=== PATIENT | male | born 1950 | race Caucasian/White ===

== ENCOUNTER 2019-08-30 13:52 | Outpatient (CLI) | payer MEDICARE, MEDICAID, SELFPAY ==
--- NOTE | ~2019-08-30 | XR_ITS ---
EXAMINATION: XR chest 2V EXAM DATE: 08/30/2019 14:21 INDICATION: COPD. Airspace disease. Shortness of breath and cough. TECHNIQUE: Frontal and lateral projections of the chest obtained and reviewed. Comparison is made to prior examination from 07/11/2019. FINDINGS: Sternotomy wires are present without findings to suggest sternal dehiscence. There is mode rate amount of right greater than left airspace disease, could be multifocal pneumonia and/or edema. Underlying cancer not excludable. There are small to moderate bilateral pleural effusions. Heart is u pper limits of normal in size, and improved compared to previous examination. No pneumothorax. There are mild bony degenerative changes. Right humeral enchondroma. IMPRESSION: 1. Moderate amount of bibasilar edema and/or pneumonia. Underlying cancer not excludable. 2. Small to moderate pleural effusions. Reviewed, dictated and finalized at location B. L SPRAY OPERATOR
== END 2019-08-30 13:53 | disposition home or self-care (01) ==
LOC: ANHIMG 13:58
PROVIDERS: PCP Internal Medicine; Visit Provider Internal Medicine
DX: I50.42 Chronic combined systolic (congestive) and diastolic (congestive) heart failure (principal); J90 Pleural effusion, not elsewhere classified
CPT/HCPCS: 71046

== ENCOUNTER 2019-09-12 11:47 | Outpatient (CLI) | payer MEDICARE, MEDICAID, SELFPAY ==
[2019-09-12 12:45] LABS: Basophils Percent Auto 0.7 % (0.2-1.2); Eosinophils Absolute Auto 0.3 K/mm3 (0-0.3); Eosinophils Percent Auto 4.8 % (0-4.4); Hematocrit 30.1 % (42.0-52.0); Hemoglobin 9.5 g/dL (14.0-18.0); Immature Granulocyte Absolute 0.03 K/mm3 (0.00-0.031); Immature Granulocyte Percent A 0.5 % (0-0.5); Lymphocytes Absolute Auto 1.03 K/mm3 (0.9-3.2); Lymphocytes Percent Auto 17.2 % (18.3-44.2); Mean Corpuscular HGB Conc 31.6 g/dl (32-36); Mean Corpuscular Hemoglobin 27.9 pg (26-34); Mean Corpuscular Volume 88.3 fl (80-100); Mean Platelet Volume 10.3 fl (7.4-10.4); Monocytes Absolute Auto 0.7 K/mm3 (0.1-0.6); Monocytes Percent Auto 11.5 % (2.6-8.5); Neutrophils Absolute Auto 3.9 K/mm3 (1.3-6.7); Neutrophils Percent Auto 65.3 % (45.5-73.1); Platelet Count Result 245 k/mm3 (150-375); Red Blood Count 3.41 M/mm3 (4.6-6.20); Red Cell Distribution Width 15.1 % (11.5-14.5)
[2019-09-12 12:52] LABS: Alanine Aminotransferase 8 U/L (4-50); Albumin Level 3.5 g/dL (3.5-5.1); Alkaline Phosphatase 59 U/L (38-126); Aspartate Amino Transferase 14 U/L (17-59); Bilirubin,Total 0.4 mg/dL (0.2-1.3); Blood Urea Nitrogen 44 mg/dL (9-20); Calcium 9.1 mg/dL (8.4-10.2); Carbon Dioxide 27 mmol/L (22-30); Chloride 94 mmol/L (98-107); Estimated Glomerular Filt Rate 17; Glucose 184 mg/dL (75-110); Potassium 4.7 mmol/L (3.4-5.0); Sodium 136 mmol/L (137-145)
[2019-09-12 12:55] LABS: Hemoglobin A1C 5.8 % (<5.7)
== END 2019-09-12 11:48 | disposition home or self-care (01) ==
PROVIDERS: PCP Internal Medicine; Visit Provider Internal Medicine
DX: N18.4 Chronic kidney disease, stage 4 (severe) (principal); D63.1 Anemia in chronic kidney disease; E11.22 Type 2 diabetes mellitus with diabetic chronic kidney disease; I12.9 Hypertensive chronic kidney disease with stage 1 through stage 4 chronic kidney disease, or unspecified chronic kidney disease
CPT/HCPCS: 36415; 80053; 83036; 85025

== ENCOUNTER 2019-10-14 09:18 | Observation (INO) | payer MEDICARE, MEDICAID, SELFPAY ==
[2019-10-14] VITALS (17 sets, daily range): BP systolic 134–178; BP diastolic 65–80; PULSE 64–88; RESP 16–20; TEMP 36.6–36.9; O2SAT 94–99; BMI 23.6; BMI 29.8
--- NOTE | ~2019-10-14 | XR_ITS ---
EXAMINATION: XR chest 2V DATE: 10/14/2019 10:46 INDICATION: Shortness of breath TECHNIQUE: AP and lateral views of the chest are obtained. COMPARISON: 08/30/2019 FINDINGS: There are patchy interstitial and airspace opacities with a mid and lower lung zone predomi nance. Small pleural effusions are present. There is no pneumothorax. Cardiomegaly is noted. Median s ternotomy wires and mediastinal surgical clips are seen, likely from prior coronary artery bypass gra fting. Again noted is a chronic sclerotic lesion of the right humeral diaphysis, likely representing an enchondroma. IMPRESSION: 1. Stable cardiomegaly. 2. Opacities of the mid and lower lung zones, consistent with pulmonary edema and/or pneumonia and/or atelectasis. 2. Small pleural effusions. Reviewed, dictated and finalized at location A. IMPRESSION: 1. Stable cardiomegaly. 2. Opacities of the mid and lower lung zones, consistent with pulmonary edema a nd/or pneumonia and/or atelectasis. 2. Small pleural effusions.
--- NOTE | 2019-10-14 09:51 | ECG_ITS ---
Measurements Intervals [place] Rate: 68 P: 44 SD: 110 QRS: 24 QRSD: 114 T: 185 QT: 450 QTc: 479 Interpretive Statements SINUS RHYTHM WITH SHORT SD INTERVAL POSSIBLE LEFT ATRIAL ENLARGEMENT INCOMPLETE LEFT BUNDLE BRANCH BLOCK LEFT VENTRICULAR HYPERTROPHY AND ST-T CHANGE ST-T WAVE ABNORMALITY IN LATERAL LEADS- CONSIDER ISCHEMIA BASELINE ARTIFACT- I, III, AVL ABNORMAL ECG Electronically Signed On 10-14-2019 10:19:27 CDT by Danny Michelle D.O.
--- NOTE | 2019-10-14 09:56 | ED.WEAKNESS ---
HPI - Weakness General Chief complaint: Weakness <Sarah Jessica PA-C - Last Filed: 10/14/19 15:15> Stated complaint: WEAKNESS <KENDRICK Salvador Last Filed: 10/14/19 15:15> Time Seen by Provider: 10/14/19 09:24 <KENDRICK Salvador Last Filed: 10/14/19 15:15> Source: patient <KENDRICK Salvador Last Filed: 10/14/19 15:15> Mode of arrival: wheelchair <KENDRICK Salvador Last Filed: 10/14/19 15:15> Limitations: no limitations <KENDRICK Salvador Last Filed: 10/14/19 15:15> History of Present Illness HPI Narrative: This is a 69 year old male that presents to the ER for shortness of breath since this morning. Reports he started feeling short of breath in the middle of the night. Reports he could not sleep due to shortness of breath. Reports some fatigue. Reports a chronic productive cough. Reports he was seen by his PCP and supervisor litharge 2 days ago and told he was doing well. Denies fever, chest pain, abdominal pain, vomiting, dysuria or hematuria. <KENDRICK Salvador Last Filed: 10/14/19 15:15> Related Data Home medications: Home Medications Medication Instructions Recorded Confirmed aspirin 81 mg tablet,delayed 81 mg PO DAILY 05/29/19 10/14/19 release ezetimibe 10 mg tablet 10 mg PO QPM 05/29/19 10/14/19 isosorbide mononitrate 30 mg 30 mg PO DAILY 05/29/19 10/14/19 tablet,extended release 24 hr omega-3 fatty acids 1,000 mg 1,000 mg PO DAILY 05/29/19 10/14/19 capsule famotidine [Pepcid] 20 mg PO DAILY 06/04/19 10/14/19 cholecalciferol (vitamin D3) 25 1,000 unit PO DAILY 07/10/19 10/14/19 mcg (1,000 unit) capsule hydralazine 100 mg tablet 100 mg PO TID tablet 09/12/19 10/14/19 furosemide 40 mg tablet 40 mg PO BID 10/11/19 10/14/19 insulin glargine [Lantus Solostar 18 unit SUB-Q HS 10/14/19 10/14/19 U-100 Insulin] insulin glargine [Lantus Solostar 26 unit SUBCUT QAM 10/14/19 10/14/19 U-100 Insulin] <Sarah Jessica PA-C - Last Filed: 10/14/19 15:15> Allergies/Adverse reactions: Allergies Allergy/AdvReac Type Severity Reaction Status Date / Time No Known Allergies Allergy Verified 10/14/19 09:31 <Sarah Jessica PA-C - Last Filed: 10/14/19 15:15> Review of Systems Review of Systems: Narrative: CONSTITUTIONAL: Denies fever, chills ENT: Reports rhinorrhea, congestion. Denies sore throat, or otalgia. CARDIOVASCULAR: Reports edema. Denies chest pain RESPIRATORY: Reports cough and dyspnea. GASTROINTESTINAL: Denies abdominal pain, nausea, vomiting GENITOURINARY: Denies dysuria or hematuria. <Sarah Jessica PA-C - Last Filed: 10/14/19 15:15> All systems reviewed & are unremarkable except as noted in HPI and below <Sarah Jessica PA-C - Last Filed: 10/14/19 15:15> [facility] Social History Social History: Social History Social History: the patient has smoked between a half a pack of cigarettes per day up to a pack and half cigarettes per day since he was young. He reports that he [place] and never intends to quit smoking. He has not drank alcohol in 48 years. He has been to his of 50 years and she is at bedside. The patient quit driving in the last several months. He realizes that it is time for him to give up driving. He denies any illicit substance use. 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 The patient wants to get better so that he has some more time with his grandchildren. Code status is DNR per patient request. His is his healthcare power of welder manufacture. primary care physician is Dr. Carl Melgar Smoking packs per day: 0.5 Smoking cigarettes per day: 10.0 Smoking status: Current every day smoker Tobacco type: cigarettes Second hand tobacco smoke exposure: Yes
[2019-10-14 10:09] LABS: Basophils Percent Auto 0.5 % (0.2-1.2); Eosinophils Absolute Auto 0.4 K/mm3 (0-0.3); Eosinophils Percent Auto 5.4 % (0-4.4); Hematocrit 31.8 % (42.0-52.0); Hemoglobin 9.9 g/dL (14.0-18.0); Immature Granulocyte Absolute 0.03 K/mm3 (0.00-0.031); Immature Granulocyte Percent A 0.4 % (0-0.5); Lymphocytes Absolute Auto 0.93 K/mm3 (0.9-3.2); Lymphocytes Percent Auto 12.6 % (18.3-44.2); Mean Corpuscular HGB Conc 31.1 g/dl (32-36); Mean Corpuscular Volume 90.1 fl (80-100); Mean Platelet Volume 10.8 fl (7.4-10.4); Monocytes Absolute Auto 0.7 K/mm3 (0.1-0.6); Monocytes Percent Auto 9.4 % (2.6-8.5); Neutrophils Absolute Auto 5.3 K/mm3 (1.3-6.7); Neutrophils Percent Auto 71.7 % (45.5-73.1); Platelet Count Result 259 k/mm3 (150-375); Red Blood Count 3.53 M/mm3 (4.6-6.20); Red Cell Distribution Width 15.5 % (11.5-14.5); White Blood Count 7.4 K/mm3 (4.5-10.0)
[2019-10-14] MEDS: IPRATROPIUM BR 0.02% INH SOLN 0.5 MG/2.5 ML VIAL INHALATION ×2 (10:12→21:03)
[2019-10-14 10:13] LABS: Lactic Acid Reflex 0.6 mmol/L (0.7-2.1)
[2019-10-14 10:19] LABS: Blood Urea Nitrogen 48 mg/dL (9-20); CRP 1.8 mg/dL (<1.0); Calcium 8.7 mg/dL (8.4-10.2); Carbon Dioxide 25 mmol/L (22-30); Chloride 99 mmol/L (98-107); Estimated Glomerular Filt Rate 17; Glucose 84 mg/dL (75-110); Sodium 136 mmol/L (137-145)
[2019-10-14 10:22] LABS: NT Pro B Type Natriuretic Pept > 35000 PG/ML (5-100)
[2019-10-14 10:23] LABS: Alveolar/Arterial O2 Gradient 39.6 mmHg; Base Excess ABG -2.6 mEq/l (+/-2.0); Carboxyhemoglobin 4.8 % THb (0-2.0); Device ROOM AIR; Fractional Inspired Oxygen 21 %; HCO3 ABG 21.6 mEq/l (22.0-26.0); Methemoglobin ABG 0.3 %THb (0-1.5); Modified Allen's Test Pass; Oxygen Saturation ABG 93.9 % (95.0-100.0); Oxyhemoglobin 87.6 % THb (90.0-100.0); PCO2 ABG 35.1 mmHg (35.0-45.0); PO2 ABG 68.1 mmHg (80.0-100.0); PO2 FiO2 Ratio Arterial Blood 3.24 %; Reduced Hemoglobin 7.3 %THb (0-5.0); Site Drawn LEFT RADIAL; Total Hemoglobin 10.5 g/dL (12.0-18.0); pH ABG 7.407 (7.350-7.450)
--- NOTE | 2019-10-14 11:13 | PC.NURSE ---
Patient's at the nurses station inquiring about drink. PA aware and okayed diet soda. Patient states, this is why I left last time, they won't give you anything to eat. Encouraged to give urine sample; states he won't be able to. Straight cath urine ordered.
[2019-10-14 11:35] LABS: Add Urine Microscopic? YES; Appearance Urine Clear (Clear); Bilirubin Urine Negative (Negative); Blood Urine Negative (Negative); Color Urine Yellow (Yellow); Glucose Urine UA Negative (Negative); Ketones Urine Negative (Negative); Leukocyte Esterase Ur Negative LEU/UL (Negative); Mucus Urine Rare /lpf; Nitrate Urine Negative (Negative); Protein Urine 3+ mg/dL (Negative); Specific Grav Ur 1.014 (1.001-1.035); Squamous Epithelial Cell Urine Rare /hpf (Few); Urobilinogen Urine Negative mg/dL (<2.0); WBC Urine 0-3 /hpf
[2019-10-14] MEDS: FUROSEMIDE INJ 40 MG/4 ML VIAL IV PUSH (12:29)
--- NOTE | 2019-10-14 14:11 | PC.NURSE ---
Dietary called and tray requested.
--- NOTE | 2019-10-14 15:59 | ADMGEN ---
This patient, Jose Stanley, was admitted to 3 [facility] Surg Room 315-02. Patient/family oriented to hospital policies and general routines including ID bracelet, bed and alarms, visiting hours, pain management, procedures, bathroom and other care routines, personal items, smoking policy, room service/diet, and visiting hours. Valuables list has been completed. Information on how to activate the Rapid Response Team has been discussed. Patient/Family are encouraged to report perceived risks to care and to ask questions if they do not understand what they are told or what they should do.
--- NOTE | 2019-10-14 16:51 | PC.NURSE ---
Informed pt he would be on a bed alarm due to his respiratory illness and weakness. He sighed and mumbled some curse words but did not refuse the bed alarm. Pt states he does not want to be left not a human so he would like to be a DNR. Also, pt only wants to be here one day. Pt has had sores that developed into staph infections on his feet last summer. They are being treated with mupirocin BID
[2019-10-14 17:11] LABS: Glucose Point of Care 179 (65-105)
--- NOTE | 2019-10-14 18:23 | PM.IMHP ---
H&P: HPI History of Present Illness Chief complaint: CHF exacerbation/CAP/CKD Narrative: Jose Stanley is a 69 year old male who has a history of chronic interstitial lung disease seen by his timber hewer on the of this month and he also saw his primary care doctor and stated that everything checked out fine. The patient has been using his medications as prescribed. The patient came to the emergency room today because he was short of breath since this morning. The patient started feeling short of breath in the middle night. It was not able to sleep due to the shortness of breath. He could not lie flat. He has been fatigued today. He has a chronic productive cough. Patient does continue to smoke and stated that he would not stop smoking. Was read as stable cardiomegaly. Opacities in the mid and lower lung zones, consistent with pulmonary edema and/or pneumonia and/or atelectasis. Small pleural effusions. The patient tells me that he is coughing up a clear to thick white sputum. Any fever or chills. He has a chronic cough. The patient initially did not want to stay but his convinced him. However the patient is stating that he would like to go home tomorrow. I explained the could not promise that he could go home tomorrow but he may need to be here longer. Pulmonology has been consulted and had recommended antibiotics. The patient was started on azithromycin and ceftriaxone. He was also given IV Lasix and nebulizer treatments. White count is normal. Date of service 10/14/2019 Review of Systems Review of Systems: Narrative: Patient is short of breath with exertion and lying flat. He does not wear oxygen at home. All systems reviewed & are unremarkable except as noted in HPI and below Constitutional: Constitutional: Reports as per HPI and Reports no additional constitutional complaints Eyes: Eyes: Reports as per HPI and Reports no additional eye complaints ENT: Reports system reviewed and no additional complaints, except as documented and Reports Normal hearing present Cardiovascular: Cardiovascular: Reports no additional cardiovascular complaints Respiratory: Respiratory: Reports no additional respiratory complaints and Reports no additional respiratory complaints Gastrointestinal: Gastrointestinal: Reports as per HPI and Reports no additional gastrointestinal complaints Musculoskeletal: Musculoskeletal: Reports no additional musculoskeletal complaints Integumentary/Breasts: Skin/Breast: Reports system reviewed and no additional complaints, except as docu and Reports as per HPI Neurologic: Reports system reviewed and no additional complaints, except as documented, Reports as per HPI and Reports Normal hearing present Psychiatric: Psychiatric: Reports no additional psychiatric complaints and Reports as per HPI Endocrine: Endocrine: Reports no additional endocrine complaints Hematologic/Lymphatic: Hematologic/Lymphatic: Reports no additional hematologic/lymphatic complaints Allergic/Immunologic: Allergic/Immunologic: Reports no additional allergic/immunologic complaints [facility] Past Medical History Medical History Anemia in chronic kidney disease CAD (coronary artery disease) CHF (congestive heart failure) Chronic kidney disease (CKD) stage G4/A1, severely decreased glomerular filtration rate (GFR) between 15-29 mL/min/1.73 square meter and albuminuria creatinine ratio less than 30 mg/g Combined systolic and diastolic cardiac dysfunction echocardiogram January 2019 demonstrating EF of 35-40% with grade 2 diastolic dysfunction Diabetes mellitus diagnosed January 2019, insulin-dependent HLD (hyperlipidemia) HTN (hypertension) Myocardial infarct Peripheral artery disease PNA (pneumonia) Tobacco abuse Surgical History Surgical History (Updated 10/14/19 @ 18:38 by Isabel Marcum NP) H/O arthroscopic knee surgery Left knee to clean out infection History of surg
[2019-10-14] MEDS: methylPREDNISolone SOD SUCC 125 MG VIAL IV PUSH (18:42)
[2019-10-14] MEDS: NICOTINE (*PBKC) 21 MG PATCH 1 PATCH TRANSDERM (18:43)
[2019-10-14] MEDS: GUAIFENESIN/DEXTROMETHORPHAN 10 ML UDC PO (18:47)
[2019-10-14 19:08] LABS: Hemoglobin A1C 5.6 % (<5.7)
[2019-10-14] MEDS: METOPROLOL TARTRATE 50 MG TAB 100 MG PO (20:41)
[2019-10-14] MEDS: TRAZODONE HCL 50 MG TABLET 100 MG PO (20:43)
[2019-10-14] MEDS: MUPIROCIN 2% OINT 22 GM TUBE 1 APPLIC TOPICAL (20:44)
[2019-10-14] MEDS: EZETIMIBE 10 MG TABLET PO (20:44)
[2019-10-14] MEDS: INSULIN GLARGINE (*BKC) 100 UNITS/ML 18 UNITS SUB-Q (20:55)
[2019-10-14] MEDS: ALBUTEROL SULFATE NEB 2.5 MG/0.5 ML INH INHALATION (21:03)
[2019-10-14 21:14] LABS: Glucose Point of Care 105 (65-105)
[2019-10-14] MEDS: methylPREDNISolone SOD SUCC 125 MG VIAL 60 MG IV PUSH (21:29)
[2019-10-15] VITALS (10 sets, daily range): BP systolic 166–184; BP diastolic 68–70; PULSE 70–83; RESP 16–20; TEMP 36.6–36.7; O2SAT 94–99
--- NOTE | 2019-10-15 00:29 | PC.NURSE ---
Patient refuses bed alarm. Patient agrees to call for assistance when getting out of bed.
[2019-10-15] MEDS: IPRATROPIUM BR 0.02% INH SOLN 0.5 MG/2.5 ML VIAL INHALATION ×2 (02:41→09:24)
[2019-10-15] MEDS: ALBUTEROL SULFATE NEB 2.5 MG/0.5 ML INH INHALATION ×2 (02:41→09:25)
[2019-10-15 06:13] LABS: Basophils Percent Auto 0.2 % (0.2-1.2); Hematocrit 31.8 % (42.0-52.0); Hemoglobin 10.2 g/dL (14.0-18.0); Immature Granulocyte Absolute 0.04 K/mm3 (0.00-0.031); Immature Granulocyte Percent A 0.7 % (0-0.5); Lymphocytes Absolute Auto 0.46 K/mm3 (0.9-3.2); Lymphocytes Percent Auto 7.7 % (18.3-44.2); Mean Corpuscular HGB Conc 32.1 g/dl (32-36); Mean Corpuscular Hemoglobin 28.1 pg (26-34); Mean Corpuscular Volume 87.6 fl (80-100); Mean Platelet Volume 10.4 fl (7.4-10.4); Monocytes Absolute Auto 0.1 K/mm3 (0.1-0.6); Neutrophils Absolute Auto 5.4 K/mm3 (1.3-6.7); Neutrophils Percent Auto 90.4 % (45.5-73.1); Platelet Count Result 217 k/mm3 (150-375); Red Blood Count 3.63 M/mm3 (4.6-6.20); Red Cell Distribution Width 14.9 % (11.5-14.5)
[2019-10-15] MEDS: methylPREDNISolone SOD SUCC 125 MG VIAL 60 MG IV PUSH (06:14)
[2019-10-15 06:28] LABS: Alanine Aminotransferase 11 U/L (4-50); Albumin Level 3.7 g/dL (3.5-5.1); Alkaline Phosphatase 56 U/L (38-126); Aspartate Amino Transferase 15 U/L (17-59); Bilirubin,Total 0.5 mg/dL (0.2-1.3); Blood Urea Nitrogen 47 mg/dL (9-20); Calcium 8.8 mg/dL (8.4-10.2); Carbon Dioxide 22 mmol/L (22-30); Chloride 101 mmol/L (98-107); Estimated CRCL calculation 16 ml/min; Estimated Glomerular Filt Rate 15; Glucose 188 mg/dL (75-110); Magnesium 2.2 mg/dL (1.6-2.3); Sodium 133 mmol/L (137-145)
[2019-10-15 08:44] LABS: Glucose Point of Care 193 (65-105)
[2019-10-15] MEDS: INSULIN GLARGINE (*BKC) 100 UNITS/ML 26 UNITS SUB-Q (09:30)
[2019-10-15] MEDS: MUPIROCIN 2% OINT 22 GM TUBE 1 APPLIC TOPICAL (09:39)
[2019-10-15] MEDS: METOPROLOL TARTRATE 50 MG TAB 100 MG PO (09:39)
[2019-10-15] MEDS: CHOLECALCIFEROL 1,000 UNIT TABLET 1000 UNITS PO (09:43)
[2019-10-15] MEDS: FAMOTIDINE 20 MG TABLET PO (09:43)
[2019-10-15] MEDS: ASPIRIN 81 MG ENTERIC TABLET PO (09:43)
[2019-10-15] MEDS: hydrALAZINE HCL 50 MG TABLET 100 MG PO ×2 (09:43→13:31)
[2019-10-15] MEDS: FUROSEMIDE INJ 40 MG/4 ML VIAL IV PUSH (09:43)
[2019-10-15] MEDS: ISOSORBIDE MONONITRATE 30 MG TAB.ER.24H PO (09:44)
[2019-10-15] MEDS: NICOTINE (*PBKC) 21 MG PATCH 1 PATCH TRANSDERM (09:44)
[2019-10-15] MEDS: OMEGA 3 POLYUNSAT FATTY ACIDS 1 GM CAP PO (09:45)
--- NOTE | 2019-10-15 11:21 | PM.IMPN ---
Progress Note: A&P Assessment and Plan (1) Combined systolic and diastolic cardiac dysfunction: Code(s): I51.89 - Other ill-defined heart diseases Status: Acute Assessment and Plan: Chest xray as noted below. Clinically more consistent with CHF exacerbation Has received IV Lasix here. Plan to return to oral Lasix at discharge. Continue metoprolol. Will discharge today as stable. Can follow up with PCP, pulmonology and nephrology as outpatient. (2) Pneumonia: Qualifiers: Laterality: right Lung location: upper lobe of lung Pneumonia type: due to unspecified organism Qualified Code(s): J18.1 - Lobar pneumonia, unspecified organism Code(s): J18.9 - Pneumonia, unspecified organism Status: Ruled-out Assessment and Plan: Chest xray on admission with opacities of the mid and lower lung zones, consistent with pulmonary edema and/or pneumonia and/or atelectasis. Pulmonology consulted from ER with recommendation for antibiotics with IV azithryomycin and ceftriaxone started. Clinically less likely pneumonia with WBC normal and no fever. Patient on room air. Feels much better and wants to go home. Notified pulmonology symptoms more consistent with CHF. Will not send home on oral antibiotics. (3) Chronic kidney disease (CKD) stage G4/A1, severely decreased glomerular filtration rate (GFR) between 15-29 mL/min/1.73 square meter and albuminuria creatinine ratio less than 30 mg/g: Code(s): N18.4 - Chronic kidney disease, stage 4 (severe) Status: Acute Assessment and Plan: Nephrology has been consulted. I did discuss with Dr. Monahan as patient eager to go home. Creatinine slightlly higher at 4.00 today but this is consistent with IV Lasix being given. Can follow as outpatient. (4) ILD (interstitial lung disease): Code(s): J84.9 - Interstitial pulmonary disease, unspecified Status: Acute Assessment and Plan: Chronic. Sees pulmonology regularly. Continue nebulizer treatments while here. On room air. Also receiving IV steroids. Await further recommendations from pulmonology. (5) HTN (hypertension): Qualifiers: Hypertension type: essential hypertension Qualified Code(s): I10 - Essential (primary) hypertension Code(s): I10 - Essential (primary) hypertension Status: Acute Assessment and Plan: Blood pressure reviewed on 10/15/2019 with elevated readings but patient is worried about getting home. Will continue metoprolol, hydralazine, Lasix, and isosorbide. Can adjust treatment if needed. (6) Diabetes mellitus: Qualifiers: Chronic kidney disease stage: stage 4 (severe) Diabetes mellitus complication detail: with chronic kidney disease Diabetes mellitus complication status: with kidney complications Diabetes mellitus long chain quiller tender insulin use: with long chain quiller tender use Diabetes mellitus type: type 2 Qualified Code(s): E11.22 - Type 2 diabetes mellitus with diabetic chronic kidney disease; N18.4 - Chronic kidney disease, stage 4 (severe); Z79.4 - termination clerk (current) use of insulin Code(s): E11.9 - Type 2 diabetes mellitus without complications Status: Acute Assessment and Plan: HgbA1C 5.6. Continue home Lantus. Sliding scale insulin available as needed. (7) Anemia in chronic kidney disease: Qualifiers: Chronic kidney disease stage: stage 4 (severe) Qualified Code(s): N18.4 - Chronic kidney disease, stage 4 (severe); D63.1 - Anemia in chronic kidney disease Code(s): N18.9 - Chronic kidney disease, unspecified; D63.1 - Anemia in chronic kidney disease Status: Acute Assessment and Plan: H/H stable. (8) HLD (hyperlipidemia): Qualifiers: Hyperlipidemia type: unspecified Qualified Code(s): E78.5 - Hyperlipidemia, unspecified Code(s): E78.5 - Hyperlipidemia, unspecified Status: Acute Assessment and Plan: Continue Zetia and fish oil. (9) DVT pr
[2019-10-15 13:23] LABS: Glucose Point of Care 202 (65-105)
[2019-10-15] MEDS: INSULIN ASPART (*BKC) 100 UNITS/ML SUB-Q (13:29)
--- NOTE | 2019-10-15 16:31 | PM.DS ---
DS: Diagnosis Admitting Diagnosis Admitting Diagnosis: Lobar pneumonia, unspecified organism Discharge Diagnosis (1) Combined systolic and diastolic cardiac dysfunction: Code(s): I51.89 - Other ill-defined heart diseases Status: Acute Assessment and Plan: Acute on chronic combined systolic and diastolic CHF. (2) Pneumonia: Qualifiers: Laterality: right Lung location: upper lobe of lung Pneumonia type: due to unspecified organism Qualified Code(s): J18.1 - Lobar pneumonia, unspecified organism Code(s): J18.9 - Pneumonia, unspecified organism Status: Ruled-out Assessment and Plan: RULED OUT (3) Chronic kidney disease (CKD) stage G4/A1, severely decreased glomerular filtration rate (GFR) between 15-29 mL/min/1.73 square meter and albuminuria creatinine ratio less than 30 mg/g: Code(s): N18.4 - Chronic kidney disease, stage 4 (severe) Status: Acute (4) ILD (interstitial lung disease): Code(s): J84.9 - Interstitial pulmonary disease, unspecified Status: Acute (5) HTN (hypertension): Qualifiers: Hypertension type: essential hypertension Qualified Code(s): I10 - Essential (primary) hypertension Code(s): I10 - Essential (primary) hypertension Status: Acute (6) Diabetes mellitus: Qualifiers: Chronic kidney disease stage: stage 4 (severe) Diabetes mellitus complication detail: with chronic kidney disease Diabetes mellitus complication status: with kidney complications Diabetes mellitus alf insulin use: with economics analyst use Diabetes mellitus type: type 2 Qualified Code(s): E11.22 - Type 2 diabetes mellitus with diabetic chronic kidney disease; N18.4 - Chronic kidney disease, stage 4 (severe); Z79.4 - legal collector (current) use of insulin Code(s): E11.9 - Type 2 diabetes mellitus without complications Status: Acute (7) Anemia in chronic kidney disease: Qualifiers: Chronic kidney disease stage: stage 4 (severe) Qualified Code(s): N18.4 - Chronic kidney disease, stage 4 (severe); D63.1 - Anemia in chronic kidney disease Code(s): N18.9 - Chronic kidney disease, unspecified; D63.1 - Anemia in chronic kidney disease Status: Acute (8) HLD (hyperlipidemia): Qualifiers: Hyperlipidemia type: unspecified Qualified Code(s): E78.5 - Hyperlipidemia, unspecified Code(s): E78.5 - Hyperlipidemia, unspecified Status: Acute DS: Summary Hospital Course Reason for hospitalization: Shortness of breath. Hospital Course: Date of Service of Discharge: October 15, 2019. History of Present Illness: Patient 69-year-old gentleman with known chronic interstitial lung disease, congestive heart failure, chronic kidney disease, diabetes and hypertension presented to the emergency room with feeling of shortness of breath in the middle of the night. Patient was unable to sleep due to the shortness of breath and could not lay flat. Patient reports being fatigued. Chronic productive cough. He does continue to smoke. He was recently seen by both his primary physician and lopper with no issues noted. No fever or chills. No chest pain. In the emergency room, imaging was consistent with pulmonary edema and/or pneumonia and/or atelectasis. Pulmonology and nephrology were consulted from the emergency room. Pulmonology requested IV antibiotics. Patient was placed in observation for further evaluation and treatment. Course in Hospital: Patient was placed on the medical floor with telemetry. He was started on IV Lasix with symptoms. We were consistent with congestive heart failure with no elevated white blood cell count no fever. Patient rapidly improved with the IV Lasix. By the following day, patient was feeling better than he had in years. He was very eager to leave in order to see his family. He initially had been started on nebulizer treatments as well as continued on other home med
== END 2019-10-15 14:55 | disposition home or self-care (01) ==
LOC: ANHED 14:16 → ANH3MEDSUR 15:15 → ANH3MED 10-16 15:41 → ANH3MEDSUR 10-16 15:41
PROVIDERS: Nurse Practitioner; Physician Assistant; Admitting Provider Internal Medicine; Emergency Provider General Practice; PCP Internal Medicine; Visit Provider Hospitalist
DX: I13.0 Hypertensive heart and chronic kidney disease with heart failure and stage 1 through stage 4 chronic kidney disease, or unspecified chronic kidney disease (principal); I50.43 Acute on chronic combined systolic (congestive) and diastolic (congestive) heart failure; N18.4 Chronic kidney disease, stage 4 (severe); E11.22 Type 2 diabetes mellitus with diabetic chronic kidney disease; D63.1 Anemia in chronic kidney disease; J84.9 Interstitial pulmonary disease, unspecified; F17.210 Nicotine dependence, cigarettes, uncomplicated; E78.5 Hyperlipidemia, unspecified; E11.51 Type 2 diabetes mellitus with diabetic peripheral angiopathy without gangrene; I25.10 Atherosclerotic heart disease of native coronary artery without angina pectoris; Z79.4 Long term (current) use of insulin; Z79.82 Long term (current) use of aspirin; Z79.899 Other long term (current) drug therapy; Z95.1 Presence of aortocoronary bypass graft
CPT/HCPCS: 36415; 36600; 51701; 71046; 80048; 80053; 81001; 82375; 82805; 83036; 83050; 83605; 83735; 83880; 85025; 86140; 87804; 93005; 94640; 96365; 96374; 96375; 96376; 99285; A9270; G0378; G0379; J0456; J0696; J1815; J1940; J2930

== ENCOUNTER 2020-02-03 18:11 | Observation (INO) | payer MEDICARE, MEDICAID, SELFPAY ==
[2020-02-03] VITALS (26 sets, daily range): BP systolic 160–187; BP diastolic 63–80; PULSE 62–71; RESP 16–27; TEMP 35.8–36.7; O2SAT 92–98; BMI 23.2
--- NOTE | ~2020-02-03 | US_ITS ---
EXAMINATION: US venous doppler [facility] DATE: 02/04/2020 13:40 INDICATION: Lower limb swelling TECHNIQUE: Grayscale ultrasound images without and with compression and Doppler ultrasound images of the bilateral lower extremity veins were obtained. COMPARISON: 04/17/2019 FINDINGS: The visualized portions of right common femoral vein, profunda (deep) femoral vein, femoral vein, pop liteal vein, posterior tibial veins, peroneal veins, gastrocnemius vein and greater saphenous vein ou tflow are patent. The visualized portions of left common femoral vein, profunda femoral vein, femoral vein, popliteal v ein, posterior tibial veins, peroneal veins, gastrocnemius vein and greater saphenous vein outflow ar e patent. IMPRESSION: 1. No deep venous thrombosis in either lower limb. Reviewed, dictated and finalized at location A.
--- NOTE | ~2020-02-03 | XR_ITS ---
XR chest 1V portable DATE: 02/03/2020 19:14 INDICATION: Chest pain TECHNIQUE: Portable upright AP chest on 02/03/2020 at 1912 hours COMPARISON: 10/14/2019 portable AP chest FINDINGS: Status post sternotomy. There is mild patchy infiltrate and/atelectasis in the mid and to a greater extent lower lung zones. There are small bilateral pleural effusions. There is mild pulmonar y vascular congestion and redistribution and mild prominence of minor fissure. Aortic arch calcification. Diffuse osteopenia. IMPRESSION: Mild congestive heart failure, with bilateral mid and lower lung infiltrates which may be due to pulmonary edema or pneumonia Reviewed, dictated and finalized at location A. IMPRESSION: Mild congestive heart failure, with bilateral mid and lower lung in filtrates which may be due to pulmonary edema or pneumonia
--- NOTE | ~2020-02-03 | XR_ITS ---
EXAMINATION: XR foot RT 2V DATE: 02/03/2020 22:01 INDICATION: Right foot infection TECHNIQUE: Dorsoplantar and lateral views of the right foot were obtained. COMPARISON: None. FINDINGS: Bone alignment is normal. Partial amputation of the medial and distal aspect of the first distal phal anx with linear osteotomy margin and reduced overlying soft tissue coverage. There is suggestion of s ome osteolysis along the proximal and distal aspects of the osteotomy plane raising suspicion for rec urrent osteomyelitis. No other lesions suspicious for osteomyelitis. No fracture. Mild osteoarthritis at the metatarsophalangeal and a few interphalangeal joints. IMPRESSION: 1. Partial amputation of the right first distal phalanx with suggestion of some osteolysis suspicious for osteomyelitis along the osteotomy margin. Reviewed, dictated and finalized at location A.
--- NOTE | 2020-02-03 18:43 | ECG_ITS ---
Measurements Intervals [place] Rate: 64 P: 26 [place]: 114 QRS: 5 QRSD: 113 T: 180 QT: 450 QTc: 465 Interpretive Statements SINUS RHYTHM WIH SHORT CA INTERVAL INCOMPLETE LEFT BUNDLE BRANCH BLOCK DELAYED PRECORDIAL R/S TRANSITION ST-T WAVE ABNORMALITY IN LATERAL LEADS- CONSIDER ISCHEMIA ABNORMAL ECG Electronically Signed On 02-04-2020 6:49:53 CDT by Danny Michelle D.O.
[2020-02-03 18:52] LABS: Basophils Percent Auto 0.5 % (0.2-1.2); Eosinophils Absolute Auto 0.2 K/mm3 (0-0.3); Eosinophils Percent Auto 3.1 % (0-4.4); Hematocrit 31.3 % (42.0-52.0); Hemoglobin 9.7 g/dL (14.0-18.0); Immature Granulocyte Absolute 0.04 K/mm3 (0.00-0.031); Immature Granulocyte Percent A 0.5 % (0-0.5); Lymphocytes Percent Auto 12.2 % (18.3-44.2); Mean Corpuscular Hemoglobin 27.5 pg (26-34); Mean Corpuscular Volume 88.7 fl (80-100); Mean Platelet Volume 10.1 fl (7.4-10.4); Monocytes Absolute Auto 0.8 K/mm3 (0.1-0.6); Monocytes Percent Auto 10.8 % (2.6-8.5); Neutrophils Absolute Auto 5.4 K/mm3 (1.3-6.7); Neutrophils Percent Auto 72.9 % (45.5-73.1); Platelet Count Result 267 k/mm3 (150-375); Red Blood Count 3.53 M/mm3 (4.6-6.20); Red Cell Distribution Width 15.2 % (11.5-14.5); White Blood Count 7.4 K/mm3 (4.5-10.0)
--- NOTE | 2020-02-03 19:02 | ED.GENADULT ---
HPI - General Adult General Chief complaint: Chest Pain Stated complaint: chest pain Time Seen by Provider: 02/03/20 18:45 Source: patient and family History of Present Illness HPI narrative: Patient 69 years old white male brought to the emergency room by his complaining of feeling sick for the last 5 to 6 months. Unable to see his physician because of the COVID-19. Patient does not have any new symptoms. He came to the emergency room because his forced him to come. Today his noticed that patient grabbing his left arm because of discomfort lasted for a few seconds then went away. Currently patient denying any fever, chills, nausea, vomiting, chest pain, back pain, shortness of breath or exposure to anybody was COVID-19. Patient reports sOme lesion at the right big toe for months which is getting better. Patient also been coughing for months before the COVID-19. Is not worse than before. Patient's brought him to us today because he told her that he is feeling that he is going to and intermittently grabbing of his left upper extremity Patient main complaint right now is being here he would like to be at home. Patient reports not taking his medication as scheduled. He take IT when he remembers. Related Data Home Medications Medication Instructions Recorded Confirmed aspirin 81 mg tablet,delayed 81 mg PO DAILY 05/29/19 12/13/19 release ezetimibe 10 mg tablet 10 mg PO QPM 05/29/19 12/13/19 omega-3 fatty acids 1,000 mg 1,000 mg PO DAILY 05/29/19 12/13/19 capsule famotidine [Pepcid] 20 mg PO DAILY 06/04/19 12/13/19 cholecalciferol (vitamin D3) 25 1,000 unit PO DAILY 07/10/19 12/13/19 mcg (1,000 unit) capsule furosemide 40 mg tablet 40 mg PO BID 10/11/19 12/13/19 Lantus Solostar U-100 Insulin 18 unit SUB-Q HS 10/14/19 12/13/19 Allergies Allergy/AdvReac Type Severity Reaction Status Date / Time No Known Allergies Allergy Verified 02/03/20 18:27 Review of Systems Review of Systems: Narrative: CONSTITUTIONAL: Denies fever, chills, or sweats. EYES: Denies visual changes, redness, or discharge. ENT: Denies rhinorrhea, congestion, sore throat, or otalgia. CARDIOVASCULAR: Denies chest pain, palpitations, or edema. RESPIRATORY: Denies cough or dyspnea. GASTROINTESTINAL: Denies abdominal pain, nausea, vomiting, or diarrhea. GENITOURINARY: Denies dysuria or hematuria. SKIN: Denies rash or itching. MUSCULOSKELETAL: Denies back pain, joint pain, or myalgia. NEUROLOGIC: Denies headache, numbness, or weakness. PSYCHIATRIC: Denies anxiety or depression. [facility] Past Medical History Medical History Anemia in chronic kidney disease CAD (coronary artery disease) CHF (congestive heart failure) Chronic kidney disease (CKD) stage G4/A1, severely decreased glomerular filtration rate (GFR) between 15-29 mL/min/1.73 square meter and albuminuria creatinine ratio less than 30 mg/g Combined systolic and diastolic cardiac dysfunction echocardiogram January 2019 demonstrating EF of 35-40% with grade 2 diastolic dysfunction Diabetes mellitus diagnosed January 2019, insulin-dependent HLD (hyperlipidemia) HTN (hypertension) Myocardial infarct Peripheral artery disease PNA (pneumonia) Screening for colon cancer Tobacco abuse Surgical History Surgical History H/O arthroscopic knee surgery Left knee to clean out infection History of surgical removal of skin lesion Hx of CABG three vessel CABG 2004 Family History Family History Mother Family history of malignant neoplasm Acute myocardial infarction Cerebrovascular accident Congestive heart failure Hypertension Father Acute myocardial infarction Congestive heart failure Hypertension Social History Social History Social History: the patient has smoked between
[2020-02-03 19:03] LABS: INR 1.1; Prothrombin Time 14.2 Seconds (11.1-14.7)
[2020-02-03 19:04] LABS: Blood Urea Nitrogen 39 mg/dL (9-20); Calcium 8.6 mg/dL (8.4-10.2); Carbon Dioxide 26 mmol/L (22-30); Chloride 99 mmol/L (98-107); Estimated CRCL calculation 19 ml/min; Estimated Glomerular Filt Rate 16; Glucose 152 mg/dL (75-110); Partial Thromboplastin Time 37.3 SECONDS (22.3-36.8); Potassium 3.7 mmol/L (3.4-5.0); Sodium 133 mmol/L (137-145)
--- NOTE | 2020-02-03 19:16 | PC.NURSE ---
Report received from KAM Oconnor. Assumed care of patient at this time.
[2020-02-03 19:18] LABS: Troponin I 0.035 ng/mL (0.000-0.034)
[2020-02-03 20:02] LABS: NT Pro B Type Natriuretic Pept > 35000 PG/ML (5-100)
--- NOTE | 2020-02-03 20:46 | PC.NURSE ---
Patient was going to leave AMA, but now patient and family member stating they want to speak with the doctor because he wants to stay and be admitted. ED physician notified.
[2020-02-03] MEDS: NITROGLYCERIN OINTMENT 1 INCH DOSE TRANSDERM ×2 (21:25→23:57)
[2020-02-03] MEDS: FUROSEMIDE INJ 40 MG/4 ML VIAL 60 MG IV PUSH (21:26)
--- NOTE | 2020-02-03 21:49 | PM.IMHP ---
H&P: HPI History of Present Illness Chief complaint: CHF, noncompliance with medication Narrative: Jose Stanley is a 69 year old male who was admitted here last October 14, 2019 for shortness of breath. The patient sees a physical design engineer and has a history of chronic interstitial lung disease and saw her October 10. Since the COVID outbreak the patient has not been able to follow-up with his primary care doctor or his specialist. His appointment with his mechanical technical service specialist Dr. Gaona had been canceled. The patient has congestive heart failure with last known ejection fraction of 35-40% with grade 2 diastolic dysfunction this echo was noted on January 2019. Patient also stated that he had a wound to his right great toe that he had doctor to himself. He had cut out the infection and allowed to his pet dog to cleanse his wound. Patient stated that is healing well and has not had any fevers. The patient stated he has been feeling bad for 4-5 months. However he was too afraid to come to the emergency room because of the COVID outbreak. Patient feels tired all the time and is weak. He does have home health that comes to see him on a regular basis. His blood sugars have been up and down his with his lowest 1 being 28 and as high as 1 being up to 300. His insulin recently was adjusted. The monitors his blood sugars carefully every day. Patient tells me that he does take his medications and that he gets himself an extra dose of Lasix when he feels that he needs it he has increased swelling or shortness of breath. He also was unable to see his event staff Dr. Smith due to the COVID outbreak. However his creatinine is 3. 70 his last creatinine was noted to be 4.0. His GFR is 16 today. Blood sugar 152. BNP is greater than 35,000. Patient is not complaining of any chest pain at this time. The patient was hallucinating earlier according to his . He denies any fever or chills or nausea vomiting. The patient felt like he was going to earlier it was intermittent only grabbing his left upper extremity. The patient agreed to stay overnight but desperately wants to go back home. 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 Review of Systems Review of Systems: All systems reviewed & are unremarkable except as noted in HPI and below Constitutional: Constitutional: Reports as per HPI and Reports no additional constitutional complaints Eyes: Eyes: Reports as per HPI and Reports no additional eye complaints ENT: Reports system reviewed and no additional complaints, except as documented and Reports Normal hearing present Cardiovascular: Cardiovascular: Reports no additional cardiovascular complaints Respiratory: Respiratory: Reports no additional respiratory complaints and Reports no additional respiratory complaints Gastrointestinal: Gastrointestinal: Reports as per HPI and Reports no additional gastrointestinal complaints Musculoskeletal: Musculoskeletal: Reports no additional musculoskeletal complaints Integumentary/Breasts: Skin/Breast: Reports system reviewed and no additional complaints, except as docu and Reports as per HPI Neurologic: Reports system reviewed and no additional complaints, except as documented, Reports as per HPI and Reports Normal hearing present Psychiatric: Psychiatric: Reports no additional psychiatric complaints and Reports as per HPI Endocrine: Endocrine: Reports no additional endocrine complaints Hematologic/Lymphatic: Hematologic/Lymphatic: Reports no additional hematologic/lymphatic complaints Allergic/Immunologic: Allergic/Immunologic: Reports no additional allergic/immunologic complaints [facility] Past Medical History Medical History (Updated 02/03/20 @ 22:10 by Isabel Marcum NP) Anemia in chronic kidney disease CAD (coronary artery disease) CHF (congestive heart failure) Chronic kidney disease (CKD) stage G4/A1, severely decreased glomerular filtration rate (GFR) between 15-2
--- NOTE | 2020-02-03 22:15 | ADMGEN ---
This patient, Jose Stanley, was admitted to IMU Room 212-01. Patient/family oriented to hospital policies and general routines including ID bracelet, bed and alarms, visiting hours, pain management, procedures, bathroom and other care routines, personal items, smoking policy, room service/diet, and visiting hours. Valuables list has been completed. Information on how to activate the Rapid Response Team has been discussed. Patient/Family are encouraged to report perceived risks to care and to ask questions if they do not understand what they are told or what they should do.
[2020-02-03 22:37] LABS: Troponin I 0.037 ng/mL (0.000-0.034)
[2020-02-03] MEDS: NICOTINE (*PBKC) 21 MG PATCH 1 PATCH TRANSDERM (23:56)
[2020-02-04] VITALS (14 sets, daily range): BP systolic 165–169; BP diastolic 66–71; PULSE 59–78; RESP 16–20; TEMP 35.7–36.1; O2SAT 95–98
[2020-02-04 00:58] LABS: Glucose Point of Care 86 (65-105)
[2020-02-04 01:09] LABS: Troponin I 0.036 ng/mL (0.000-0.034)
[2020-02-04] MEDS: METOPROLOL TARTRATE 50 MG TAB 100 MG PO ×2 (01:18→08:26)
[2020-02-04] MEDS: EZETIMIBE 10 MG TABLET PO (01:18)
[2020-02-04] MEDS: traZODone HCL 50 MG TABLET 100 MG PO (01:19)
[2020-02-04] MEDS: hydrALAZINE HCL 50 MG TABLET 100 MG PO ×3 (01:19→13:40)
[2020-02-04 04:31] LABS: Lactic Acid 0.6 mmol/L (0.7-2.1)
[2020-02-04 04:40] LABS: Hemoglobin A1C 5.5 % (<5.7)
[2020-02-04 04:47] LABS: Alanine Aminotransferase 8 U/L (4-50); Albumin Level 3.4 g/dL (3.5-5.1); Alkaline Phosphatase 64 U/L (38-126); Aspartate Amino Transferase 15 U/L (17-59); Bilirubin,Total 0.5 mg/dL (0.2-1.3); Blood Urea Nitrogen 39 mg/dL (9-20); CRP 2.4 mg/dL (<1.0); Calcium 8.3 mg/dL (8.4-10.2); Carbon Dioxide 24 mmol/L (22-30); Chloride 99 mmol/L (98-107); Estimated CRCL calculation 19 ml/min; Estimated Glomerular Filt Rate 16; Glucose 114 mg/dL (75-110); Magnesium 2.1 mg/dL (1.6-2.3); Potassium 3.4 mmol/L (3.4-5.0); Sodium 136 mmol/L (137-145)
[2020-02-04] MEDS: NITROGLYCERIN OINTMENT 1 INCH DOSE TRANSDERM (06:13)
[2020-02-04] MEDS: CHOLECALCIFEROL 1,000 UNIT TABLET 1000 UNITS PO (08:26)
[2020-02-04] MEDS: FAMOTIDINE 20 MG TABLET PO (08:26)
[2020-02-04] MEDS: FUROSEMIDE INJ 40 MG/4 ML VIAL IV PUSH ×2 (08:26→16:29)
[2020-02-04] MEDS: OMEGA 3 POLYUNSAT FATTY ACIDS 1 GM CAP PO (08:26)
[2020-02-04] MEDS: NICOTINE (*PBKC) 21 MG PATCH 1 PATCH TRANSDERM (08:26)
[2020-02-04] MEDS: INSULIN GLARGINE (*BKC) 100 UNITS/ML 26 UNITS SUB-Q (08:27)
[2020-02-04] MEDS: MUPIROCIN 2% OINT 22 GM TUBE 1 APPLIC TOPICAL (08:27)
[2020-02-04 08:28] LABS: Glucose Point of Care 86 (65-105)
--- NOTE | 2020-02-04 10:00 | PM.CNCAR ---
Assessment and Plan Assessment and plan (1) Acute on chronic combined systolic and diastolic CHF (congestive heart failure): Code(s): I50.43 - Acute on chronic combined systolic (congestive) and diastolic (congestive) heart failure Status: Acute Assessment and Plan: Acute on chronic systolic and diastolic heart failure presentation symptomatic improved with IV Lasix. Patient insistent he needs to be discharged for leave the hospital is afternoon. Patient fairly comfortable at this time, however, mild decompensation persists. While I advised him not to leave he must or chooses to do so increase Lasix to 80 mg in the morning 40 mg in the afternoon for the next 3 days. He will call the office in the next 2-3 days to update us on his symptoms and to set an appointment in the next 2 weeks. Patient verbalized understanding and agreed. Counseled on CHF. Patient is well aware of the importance of monitoring his daily weight, follows a low-sodium diet. Compliance with medications strongly advised. Will obtain 2D echocardiogram in our office as an outpatient. Disposition per primary service. (2) Elevated troponin: Code(s): R79.89 - Other specified abnormal findings of blood chemistry Status: Chronic Assessment and Plan: Chronic, flat troponin elevation not secondary to acute coronary syndrome but type 2 infarct related to chronic kidney disease, ischemic cardiomyopathy, decompensated heart failure but not acute plaque rupture. (3) Uncontrolled hypertension: Code(s): I10 - Essential (primary) hypertension Status: Acute Assessment and Plan: Improved BP control. Compliance with medications. Would recommend increasing Imdur to 60 mg daily, however, this may worsen complaints of dizziness after taking his medications. (4) Type 2 diabetes mellitus with stage 4 chronic kidney disease: Code(s): E11.22 - Type 2 diabetes mellitus with diabetic chronic kidney disease; N18.4 - Chronic kidney disease, stage 4 (severe) Status: Acute Assessment and Plan: Per primary service. (5) Tobacco abuse: Code(s): Z72.0 - Tobacco use Status: Acute Assessment and Plan: Smoking cessation counseling. (6) HLD (hyperlipidemia): Qualifiers: Hyperlipidemia type: unspecified Qualified Code(s): E78.5 - Hyperlipidemia, unspecified Code(s): E78.5 - Hyperlipidemia, unspecified Status: Acute Assessment and Plan: Statin therapy strongly advised. Unclear if he has had complications in the past. Patient follows with Dr. Gaona in this regard. (7) Ischemic cardiomyopathy: Code(s): I25.5 - Ischemic cardiomyopathy Status: Acute Assessment and Plan: As above. 2D echocardiogram in our office as an outpatient. (8) ILD (interstitial lung disease): Code(s): J84.9 - Interstitial pulmonary disease, unspecified Status: Acute Assessment and Plan: Per primary service. (9) CAD (coronary artery disease): Code(s): I25.10 - Atherosclerotic heart disease of knik coronary artery without angina pectoris Status: Acute Assessment and Plan: No acute coronary symptoms. As above. Continue aggressive medical therapy. Continue aspirin, Zetia. Strongly recommend statin therapy. History of Present Illness History of Present Illness Consult date/time: Date of service: 02/04/20 10:00 This is a cardiology consultation at the request of Isabel Marcum NP for our opinion regarding CHF. Requesting physician: Isabel Marcum NP Consult reason: congestive heart failure Reason For Visit: CHF, noncompliance with medication Narrative: Patient is a pleasant 61-year-old gentleman with past medical history significant for CAD, ischemic cardiomyopathy previous ejection fraction 35-40%, history of remote CABG, diabetes mellitus, chronic kidney disease stage 4, chronic systolic and diastolic heart failure, hypertensio
[2020-02-04 12:30] LABS: Glucose Point of Care 96 (65-105)
--- NOTE | 2020-02-04 15:38 | PM.CNNEP ---
Assessment and Plan Assessment and plan (1) Chronic kidney disease, stage 4 (severe): Code(s): N18.4 - Chronic kidney disease, stage 4 (severe) Status: Acute (2) Acute on chronic combined systolic and diastolic CHF (congestive heart failure): Code(s): I50.43 - Acute on chronic combined systolic (congestive) and diastolic (congestive) heart failure Status: Acute (3) Uncontrolled hypertension: Code(s): I10 - Essential (primary) hypertension Status: Acute (4) ILD (interstitial lung disease): Code(s): J84.9 - Interstitial pulmonary disease, unspecified Status: Acute (5) Diabetes mellitus: Qualifiers: Chronic kidney disease stage: stage 4 (severe) Diabetes mellitus complication detail: with chronic kidney disease Diabetes mellitus complication status: with kidney complications Diabetes mellitus intermediate frame tender insulin use: with residential use Diabetes mellitus type: type 2 Qualified Code(s): E11.22 - Type 2 diabetes mellitus with diabetic chronic kidney disease; N18.4 - Chronic kidney disease, stage 4 (severe); Z79.4 - predatory animal exterminator (current) use of insulin Code(s): E11.9 - Type 2 diabetes mellitus without complications Status: Acute Assessment and Plan: . Additional Plan Jose has chronic kidney disease stage 4. His baseline creatinine normally runs around 3.5-4.0 mg/dL and he appears to be within this range and has been so for the last 9 months. He has no critical electrolyte abnormalities and no signs/symptoms of uremia and although he had some issues and problems with volume overload prior to his presentation this also seems to be doing reasonably well at this time. With Johnny diuretic therapy needed at this time there is probably going to be some fluctuations in his kidney function but this is to be expected. I see no reason to do any other further testing with regard to his kidney disease as is a well-established diagnosis based on his outpatient evaluation as already mentioned. Cardiology has already seen the patient and made the recommendations based on if he wants to stay in the hospital or not which seems reasonable. Should he remain in the hospital, I will continue to follow him and make further adjustments to his medications with regard to maintain stability in his CKD parameters as deemed necessary. Thank you for allowing me to participate in the care of this patient. History of Present Illness Reason for Consult Consult date: 02/04/20 Reason for consult: chronic renal failure Chief Complaint Chief complaint: CHF, noncompliance with medication History of Present Illness Narrative: The patient is a 61-year-old gentleman with past medical history as outlined below who presented to [facility] ER with complaints of shortness of breath. The patient states that his shortness of breath started to become an issue a little over a week ago but has progressively worsened. He has chronic shortness of breath issues with associated orthopnea and lower extremity edema but these issues are unchanged at this time. He follows his weights at home and they have been stable as well. He denies any dietary indiscretion and is compliant with his medications (including his diuretics) as well. He denies any other systemic symptoms and mainly came to the ER for the aforementioned shortness of breath. Work-up and evaluation in the ER demonstrated the patient to be hemodynamically stable (actually hypertensive) with lab results should an elevated BNP and chemistry consisent with his known chronic kidney disease. Interestingly, he states shortnesso breath brought him to the ER but ER documenation states it was chest pain. By the end of his evaluation in the ER, the patient stated that he wanted to leave as he felt significantly better. Paperwork was being prepared for him to leave against medical advice but then he changed his mind and stated. Even after admission,
--- NOTE | 2020-02-04 16:01 | PM.DS ---
DS: Admitting Diagnosis Admitting Diagnosis Admitting Diagnosis: Acute on chronic combined systolic (congestive) and diastolic (congestive) heart failure DS: Discharge Diagnosis Discharge Diagnosis (1) Acute on chronic combined systolic and diastolic CHF, NYHA class 4: Code(s): I50.43 - Acute on chronic combined systolic (congestive) and diastolic (congestive) heart failure Status: Acute Assessment and Plan: Pt receiving iv lasix in the hospital, wants to go home, Cardiology has made recommendation, Pt received information on CHF education. Pt wants to go home adamantly leave states it is to cold in the hospital. (2) Diabetic foot ulcer: Code(s): E11.621 - Type 2 diabetes mellitus with foot ulcer; L97.509 - Non-pressure chronic ulcer of other part of unspecified foot with unspecified severity Status: Acute Assessment and Plan: The patient has an ulcerated area on the right great toe. (3) Elevated troponin: Code(s): R79.89 - Other specified abnormal findings of blood chemistry Status: Chronic Assessment and Plan: Patient has congestive heart failure and also has chronic renal disease. Elevated troponins- likley secondary to CHF and CKD (4) Essential hypertension: Code(s): I10 - Essential (primary) hypertension Status: Acute Assessment and Plan: Bp still slightly high pt wants to go home. (5) Mixed hyperlipidemia: Code(s): E78.2 - Mixed hyperlipidemia Status: Acute Assessment and Plan: Pt is on on [place] 3 (6) Diabetes mellitus: Qualifiers: Chronic kidney disease stage: stage 4 (severe) Diabetes mellitus complication detail: with chronic kidney disease Diabetes mellitus complication status: with kidney complications Diabetes mellitus alf insulin use: with watermelon harvesting supervisor use Diabetes mellitus type: type 2 Qualified Code(s): E11.22 - Type 2 diabetes mellitus with diabetic chronic kidney disease; N18.4 - Chronic kidney disease, stage 4 (severe); Z79.4 - CHCF (current) use of insulin Code(s): E11.9 - Type 2 diabetes mellitus without complications Status: Acute Assessment and Plan: Check A1c and continue with his long-acting insulin and sliding scale insulin as well. (7) ILD (interstitial lung disease): Code(s): J84.9 - Interstitial pulmonary disease, unspecified Status: Acute Assessment and Plan: Pt to follow with DR Turcios in he clinic. Continue with his inhalers. (8) Chronic kidney disease (CKD) stage G4/A1, severely decreased glomerular filtration rate (GFR) between 15-29 mL/min/1.73 square meter and albuminuria creatinine ratio less than 30 mg/g: Code(s): N18.4 - Chronic kidney disease, stage 4 (severe) Status: Acute Assessment and Plan: Pt seen Dr Hodge here in hospital, seen By nephrology pt is at his baseline creat of 3.5. pt to follow with DR Smith in clinic. DS: Summary Time Spent with Patient Time attestation: Total time spent providing and/or coordinating discharge services:40 minutes on day of discharge Exam Const: General: other (chronically ill and frail man ) Orientation/consciousness: oriented to person and oriented to place Chest: Chest palpation & inspection: normal inspection of the chest Resp: Effort & Inspection: normal respiratory effort Auscultation: diminished lung sounds Cardio: Rate: regular rate Rhythm: regular rhythm Heart sounds: S1 normal heart sound present and S2 normal heart sound present Peripheral pulses: Peripheral pulses 2+ throughout GI: Inspection: normal to inspection Auscultation: normal bowel sounds Skin: General skin exam: normal color and other (Ulcerated area to the right great toe half of the toe is missing no drain) Lesions: no lesions Rashes: no rashes Trauma: no lacerations or abrasions Wounds: no wounds Hair: normal Nails: normal Neuro: General: oriented to person, oriented to place and Un
--- NOTE | 2020-03-11 11:20 | PM.PNPUL ---
Subjective Date/time seen: 03/11/20 11:20 patient was not seen prior to discharge, no consult completed Objective Data Meds/Results Radiology Results: ITS Impressions Chest X-Ray 02/03/20 19:29 IMPRESSION: Mild congestive heart failure, with bilateral mid and lower lung infiltrates which may be due to pulmonary edema or pneumonia Foot X-Ray 02/04/20 08:13 IMPRESSION: 1. Partial amputation of the right first distal phalanx with suggestion of some osteolysis suspicious for osteomyelitis along the osteotomy margin. Venous Doppler Study 02/04/20 13:50 IMPRESSION: 1. No deep venous thrombosis in either lower limb.
== END 2020-02-04 17:00 | disposition home or self-care (01) ==
LOC: ANHED 21:07 → ANHIMU 21:27
PROVIDERS: Nurse Practitioner; Admitting Provider Family Medicine; Emergency Provider Emergency Medicine; PCP Internal Medicine; Visit Provider Family Medicine
DX: I13.0 Hypertensive heart and chronic kidney disease with heart failure and stage 1 through stage 4 chronic kidney disease, or unspecified chronic kidney disease (principal); I50.43 Acute on chronic combined systolic (congestive) and diastolic (congestive) heart failure; E11.22 Type 2 diabetes mellitus with diabetic chronic kidney disease; N18.4 Chronic kidney disease, stage 4 (severe); D63.1 Anemia in chronic kidney disease; E11.51 Type 2 diabetes mellitus with diabetic peripheral angiopathy without gangrene; E11.621 Type 2 diabetes mellitus with foot ulcer; L97.519 Non-pressure chronic ulcer of other part of right foot with unspecified severity; J84.9 Interstitial pulmonary disease, unspecified; R79.89 Other specified abnormal findings of blood chemistry; F17.210 Nicotine dependence, cigarettes, uncomplicated; I25.10 Atherosclerotic heart disease of native coronary artery without angina pectoris; E87.1 Hypo-osmolality and hyponatremia; E78.2 Mixed hyperlipidemia; I25.2 Old myocardial infarction; Z79.4 Long term (current) use of insulin; Z79.82 Long term (current) use of aspirin; Z79.899 Other long term (current) drug therapy; Z91.14 Patient's other noncompliance with medication regimen
CPT/HCPCS: 36415; 71045; 73620; 80048; 80053; 83036; 83605; 83735; 83880; 84443; 84484; 85025; 85610; 85730; 86140; 93005; 93970; 96374; 96376; 99285; A9270; G0378; J1815; J1940

== ENCOUNTER 2020-02-07 17:24 | Emergency (ER) | payer OTHER, MEDICARE, MEDICAID, SELFPAY ==
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
[2020-02-07 17:27] VITALS: BP 154/67; PULSE 73; RESP 17; TEMP 37.9; O2SAT 96
--- NOTE | 2020-02-07 18:09 | PC.NURSE ---
patient uncooperative with assessment. refuses to provide answers to assessment questions and becomes verbally abusive with this nurse with attempts to assess. patient states he hurts everywhere but will not give specific information.
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
[2020-02-07 20:30] VITALS: BP 190/91; PULSE 84; RESP 18; O2SAT 83
[2020-02-07] MEDS: TETANUS,DIPHTHERIA,AC PERTUSSIS ADULT (0.5 ML) BOOSTRIX IM (20:40)
[2020-02-07 20:52] VITALS: RESP 18; O2SAT 99
== END 2020-02-07 21:37 | disposition short-term general hospital (02) ==
PROVIDERS: Emergency Provider General Practice; PCP Internal Medicine
DX: S32.492A Other specified fracture of left acetabulum, initial encounter for closed fracture (principal); S59.291A Other physeal fracture of lower end of radius, right arm, initial encounter for closed fracture; Z23 Encounter for immunization; E11.22 Type 2 diabetes mellitus with diabetic chronic kidney disease; I13.0 Hypertensive heart and chronic kidney disease with heart failure and stage 1 through stage 4 chronic kidney disease, or unspecified chronic kidney disease; N18.4 Chronic kidney disease, stage 4 (severe); I50.40 Unspecified combined systolic (congestive) and diastolic (congestive) heart failure; D63.1 Anemia in chronic kidney disease; Z79.4 Long term (current) use of insulin; F17.210 Nicotine dependence, cigarettes, uncomplicated; Z79.82 Long term (current) use of aspirin; M47.812 Spondylosis without myelopathy or radiculopathy, cervical region; I25.10 Atherosclerotic heart disease of native coronary artery without angina pectoris; E78.5 Hyperlipidemia, unspecified; I25.2 Old myocardial infarction; E11.51 Type 2 diabetes mellitus with diabetic peripheral angiopathy without gangrene; V43.12XA Car passenger injured in collision with other type car in nontraffic accident, initial encounter
CPT/HCPCS: 29125; 70450; 71250; 72100; 72125; 72131; 72170; 73110; 73130; 73562; 73590; 74176; 90471; 90715; 96365; 99285; J0131